=== PATIENT | male | born 2005 | race African-American/Black ===

== ENCOUNTER 2024-11-12 11:50 | Emergency (ER) | payer OTHER ==
[~2024-11-12] VITALS: Ht 182.9 cm; Wt 89.0 kg
--- NOTE | 2024-11-12 12:53 | Physician Documentation ---
History of Present Illness ~ Chief Complaint: Laceration Stated Complaint: THUMB LAC Time Seen by MD: 12:04 Source: patient Mode of Arrival: POV Exam Limitations: no limitations HPI 19-year-old male who was at the gun range then was cutting out a cut-out out of a target with his pocket knife when he accidentally cut his left thumb. His last tetanus was 9-10 years ago. States that the bleeding was very significant which frightened him. He still has full active range motion of his thumb. Tetanus Within 5 Years: No Medication Reconciliation Allergies: Coded Allergies: No Known Allergies (Unverified , 11/12/24) Past Medical History Past Medical History: No Pertinent History Review of Systems All Other Systems at this time: Reviewed and Negative Physical Exam Vital Signs: Temperature: 98.9, Heart Rate: 66, Respiratory Rate: 18, BP: 123/60, Pulse Oximetry: 97, Weight: 89.000 Physical Exam General Appearance: Alert, WD/WN. NAD. HEENT: NCAT, PERRL, EOMI. Neck: Supple, trachea midline. Cardiovascular: RRR. No m/r/g. Lungs: CTAB. Breathing unlabored Extremities: Normal inspection. No edema. Skin: Warm/dry, normal color. Left thumb laceration which is about a cm in length fairly superficial bleeding controlled no surrounding edema ecchymosis or erythema active range motion of digit is full, nail plate is normal. Cap refill at thumb is less than 2 seconds. Neurological: Alert and oriented x4, normal gait. Psychiatric: Affect congruent with mood. Procedures Procedure Note Thumb was irrigated by cytogenetic technologist with approximately 400 cc of sterile saline, area was then allowed to dry and then glued with Dermabond in placed in a digit splint. Progress Results/Orders Results/Orders Orders - NILAM HUGO General Nursing Order (11/12/24 12:08) Vital Signs 11/12/24 11/12/24 11:53 13:21 Temp 98.9 98.9 Pulse 66 68 Resp 18 16 B/P (MAP) 123/60 127/63 Pulse Ox 97 97 Medical Decision Making Differential Dx:Considerations: Include: Abrasion, Avulsion, Contusion, Laceration, Fracture, Hematoma, Neurovascular injury, Retained foreign body, Other Departure Time of Disposition: 12:53 Disposition: 01 HOME / SELF CARE / HOMELESS Impression: Primary Impression: Laceration Condition: Stable Discharge Instructions: Laceration Care, Adult, [id number] Additional Instructions: do not get wet x 72hours if any concerns for infection return to er Referrals: NO PRIMARY CARE PROVIDER (PCP) Education Educated: Patient Educated regarding: diagnosis, treatment, need for follow up Signature Scribe Signature: x Attestation: NILAM Bills Nov 12, 2024 12:53
[2024-11-12 13:21] VITALS: BP 127/63; PULSE 68; RESP 16; TEMP 98.9; O2SAT 97
== END 2024-11-12 13:10 | disposition home or self-care (01) ==
LOC: ER 11:52
DX: S61.012A Laceration without foreign body of left thumb without damage to nail, initial encounter (principal); W26.0XXA Contact with knife, initial encounter; Y93.89 Activity, other specified; Y92.89 Other specified places as the place of occurrence of the external cause; Y99.8 Other external cause status
CPT/HCPCS: 12001; 99282; A6258; A6449